=== PATIENT | female | born 1990 | race Hispanic/Latino ===

== ENCOUNTER 2018-04-27 14:09 | Emergency (ER) | payer BC ==
[2018-04-27 14:53] LABS: Hemoglobin 11.5 g/dL (12.0-16.0); Mean Corpuscular HGB CONC 33.6 g/dL (32.0-36.0); Mean Corpuscular Hemoglobin 30.1 pg (27.0-31.0); Mean Corpuscular Volume 89.6 fL (78.0-98.0); RBC Distribution Width 10.9 % (11.5-14.5)
[2018-04-27 15:09] LABS: ALT (SGPT) 14 U/L (8-55); AST (SGOT) 20 U/L (5-34); Albumin 3.8 g/dL (3.5-5.0); Alkaline Phosphatase 63 U/L (40-150); Anion Gap 10 mmol/L (10-20); BUN (Urea Nitrogen) 23 mg/dL (7.0-18.7); Bilirubin, Total 0.7 mg/dL (0.2-1.2); CRP (Inflammatory) 4.31 mg/dL (= or < 0.5); Calc. Creatinine Clearance 0 mL/min (70-130); Calcium 9.3 mg/dL (7.8-10.44); Carbon Dioxide 21 mmol/L (22-29); Chloride 107 mmol/L (98-107); Estimated GFR-MDRD 61; Globulin 5.9 g/dL (2.4-3.5); Glucose 100 mg/dL (70-105); Potassium 4.2 mmol/L (3.5-5.1); Protein, Total 9.7 g/dL (6.0-8.3); Sodium 134 mmol/L (136-145)
[2018-04-27 15:37] LABS: #Eosinphils 0.1 thou/uL (0.0-0.7); #Lymphocytes 0.7 thou/uL (1.20-3.40); #Monocytes 0.3 thou/uL (0.11-0.59); #Neutrophils 4.8 thou/uL (1.40-6.50); %Basophils 0.6 % (0.0-1.0); %Lymphocytes 11.9 % (21.0-51.0); %Monocytes 5.7 % (0.0-10.0); %Neutrophils 80.7 % (42.0-75.0); Mean Platelet Volume 9.9 fL (7.4-10.4); PLT Morphology Comment Appears Decreased; Platelet Count 89 thou/uL (130-400)
[2018-04-27 15:37] LABS: Bilirubin Negative (Negative); Blood, Urine Moderate (Negative); Clarity CLOUDY (Clear); Glucose, Urine (Dipstick) Negative (Negative); Leukocyte Large (Negative); Nitrite Negative (Negative); Protein, Urine (Dipstick) 30 mg/dL (Neg-Trace); Specific Gravity, Urine 1.025 (1.002-1.036); pH, Urine 5.5 (5.0-9.0)
[2018-04-27 15:40] LABS: Bacteria/HPF None Seen HPF (None Seen); Hyaline Casts/LPF 4-6 HYALINE CAST LPF (0-3 Hyaline); Pathc Cast-AUWi Flag 1.16 (0-2.49); WBC/HPF 21-50 HPF (0-3)
[2018-04-27 15:50] LABS: Pregnancy Test - Urine (BHCG) Negative (Negative); Pregu Control Background? CLEAR/WHITE (CLR/WHITE); Pregu Control Bar Appear? YES (CONTROL BAR); Specific Gravity 1.025 (1.002-1.036)
[2018-04-27 16:01] LABS: INR-International Normal Ratio 1.1; Prothrombin Time 14.6 SEC (12.0-14.7)
[2018-04-27 16:02] LABS: D-Dimer Test 1.49 *mcg/mL (0.27-0.43); PTT 75.6 SEC (22.9-36.1)
[2018-04-27] MEDS ORDERED: HYDROcodone/Acetaminophen 5/325 mg Tablet ONE (17:22)
--- NOTE | 2018-04-27 18:07 | ULT ---
ULTRASOUND WITH DOPPLER DUPLEX VENOUS LOWER EXTREMITY BILATERAL\ 04/27/18 CPT: 13818 ICD-10-PCS: B54D HISTORY: Pain and edema. TECHNIQUE: Color flow Doppler, spectral waveform analysis of pulsed Doppler, and novak-scale imaging with briseyda daria and augmentation, were used to evaluate the bilateral common femoral, femoral, popliteal, county coroner ior tibial, and superficial femoral, veins; and the proximal portions of the profunda femoral and gre ater saphenous, veins. FINDINGS: There is appropriate compressibility and flow within the imaged deep vein system of the left lower ex tremity. There is abnormal increased echogenicity with diminished flow and compressibility within the venous s ystem of the right lower extremity which involves the common femoral vein. There is limited visualiza tion within portions of the right lower extremity which shows somewhat limited assessment. IMPRESSION: Evidence of DVT within the proximal right thigh. Notification to ER care provider, Dr. Franklin Gardiner, was provided at the time of interpretation. Code CR POS: [id number]
== END 2018-04-27 18:33 | disposition home or self-care (01) ==
LOC: ERS 14:09
DX: I82.411 Acute embolism and thrombosis of right femoral vein (principal)
CPT/HCPCS: 36415; 80053; 81003; 81015; 81025; 85025; 85379; 85610; 85652; 85730; 86140; 87804; 93005; 93970; 96360; J3370